=== PATIENT | female | born 1980 | race Caucasian/White ===

== ENCOUNTER 2020-09-20 19:59 | Emergency (ER) | payer OTHER ==
[~2020-09-20] VITALS: Ht 167.6 cm; Wt 114.8 kg
[2020-09-20 20:41] VITALS: BP 119/77
--- NOTE | 2020-09-20 20:48 | NUR ---
pt ambulated to lobby to a/w bed. urine specimen provided.
--- NOTE | 2020-09-20 21:55 | NUR ---
PT AMBULATED TO BED #6
--- NOTE | 2020-09-20 22:19 | NUR ---
[facility] AT BEDSIDE
[2020-09-20 22:30] LABS: BASOPHILS % (AUTO) 0.4 % (0.0-2.0); EOSINOPHILS # (AUTO) 0.1 K/uL (0-0.4); EOSINOPHILS % (AUTO) 1.2 % (0.0-4.0); HEMATOCRIT 37.1 % (36-48); HEMOGLOBIN 12.2 g/dL (12.0-16.0); LYMPHOCYTES # (AUTO) 2.6 K/uL (2.5-16.5); LYMPHOCYTES % (AUTO) 23.9 % (20.5-51.1); MEAN CORPUSCULAR HEMOGLOBIN 27 pg (27-31); MEAN CORPUSCULAR HGB CONC 33 g/dL (33-37); MEAN CORPUSCULAR VOLUME 80.8 fL (80-94); MONOCYTES # (AUTO) 0.5 K/uL (0.8-1.0); NEUTROPHILS # (AUTO) 7.6 K/uL (1.8-7.7); NEUTROPHILS % (AUTO) 69.5 % (42.2-75.2); PLATELET COUNT (AUTO) 246 K/uL (140-450); RED BLOOD CELL COUNT(AUTO) 4.59 MIL/uL (4.20-5.40); RED CELL DISTRIBUTION WIDTH 14.2 % (11.6-13.7)
[2020-09-20 23:12] LABS: ALBUMIN 3.5 g/dL (3.4-5.0); ANION GAP 8.9 (8-16); CARBON DIOXIDE 29.1 mmol/L (21-32); CREATININE 0.8 mg/dL (0.6-1.3); TOTAL BILIRUBIN 0.5 mg/dL (0.0-1.0)
--- NOTE | 2020-09-20 23:21 | NUR ---
YUDELKA OSBORNE AT BEDSIDE
--- NOTE | 2020-09-20 23:30 | NUR ---
pt moved to ER bed 12 w/ steady gait.
[2020-09-21 00:06] VITALS: BP 123/80
--- NOTE | 2020-09-21 01:00 | NUR ---
Female Driver [employer]raining Instructor accompanied female patient for Pelvic Exam.
[2020-09-21] MEDS ORDERED: LIDOCAINE MPF 1% 10 MG/ML VIAL INJ ONE (01:10)
--- NOTE | 2020-09-21 01:15 | NUR ---
I&D SET UP AT BED SIDE, YUDELKA NOTIFIED
--- NOTE | 2020-09-21 01:25 | NUR ---
ASSISTED ERMD WITH I&D
[2020-09-21] MEDS ORDERED: KETOROLAC 60 MG/2 ML VIAL IM ONE (01:35)
== END 2020-09-21 02:44 | disposition home or self-care (01) ==
LOC: MED 19:59
DX: N75.0 Cyst of Bartholin's gland (principal); Z98.890 Other specified postprocedural states; Z90.710 Acquired absence of both cervix and uterus
CPT/HCPCS: 36415; 56405; 80053; 81025; 85025; 96372; 99284; J1885; J2001; 99283

== ENCOUNTER 2020-10-03 08:11 | Emergency (ER) | payer OTHER ==
[~2020-10-03] VITALS: Ht 167.6 cm; Wt 116.1 kg
[2020-10-03 08:18] VITALS: BP 148/93
--- NOTE | 2020-10-03 08:34 | NUR ---
Patient discharged with v/s stable. Written and verbal after care instructions given and explained. Patient verbalized understanding. Ambulatory with steady gait. All questions addressed prior to discharge. Advised to follow up with PMD. No nursing care provided in our ER.
== END 2020-10-03 08:34 | disposition home or self-care (01) ==
LOC: MED 08:11
DX: N75.1 Abscess of Bartholin's gland (principal)
CPT/HCPCS: 99281